=== PATIENT | male | born 1970 | race Caucasian/White ===

== ENCOUNTER 2018-05-29 09:16 | Observation (INO) | payer BC, OTHER ==
[~2018-05-29] VITALS: Ht 170.2 cm; Wt 81.7 kg
[~2018-05-29 09:16] MED LIST: HYDROCODONE PO; JANUVIA100 MG PO; KOMBIGLYZE XR1 EAC2 PO; LIVALO4 MG PO; METFORMIN HCL1000 MG PO; OMEGA 3 1,0001 EACH PO
[2018-05-29] MEDS ORDERED: PANTOPRAZOLE 40 MG 10ML VIAL IV STA (09:21)
[2018-05-29] MEDS ORDERED: SODIUM CHLORIDE 0.9% 1000ML 1,000 ML IV STA (09:21)
[2018-05-29] MEDS ORDERED: ONDANSETRON HCL INJ 2 MG/ML VIAL IV ONE (09:30)
[2018-05-29 09:48] LABS: BASOPHILS % 0.3 % (0.0-1.0); EOSINOPHILS # (AUTO) 0.1 (0.0-0.4); EOSINOPHILS % 1.4 % (0.0-6.0); HEMATOCRIT 41.9 % (38.2-49.6); HEMOGLOBIN 13.8 g/dL (14.0-18.0); LYMPHOCYTES # (AUTO) 2.4 (1.0-3.2); LYMPHOCYTES % 36.1 % (18.0-39.1); MEAN CORPUSCULAR HEMOGLOBIN 22.5 pg (28-32); MEAN CORPUSCULAR HGB CONC 32.9 g/dL (31-35); MEAN CORPUSCULAR VOLUME 68.5 fL (81-99); MONOCYTES # (AUTO) 0.4 (0.2-0.8); MONOCYTES % 5.5 % (4.4-11.3); NEUTROPHILS # (AUTO) 3.7 (2.1-6.9); NEUTROPHILS % 56.5 % (38.7-80.0); PLATELET COUNT 247 x10e3/uL (140-360); RED BLOOD COUNT 6.12 x10e6/uL (4.3-5.7); RED CELL DISTRIBUTION WIDTH 17.4 % (11.7-14.4)
[2018-05-29 10:00] LABS: ALANINE AMINOTRANSFERASE 34 IU/L (0-55); ALBUMIN/GLOBULIN RATIO 1.1 (0.8-2.0); ALKALINE PHOSPHATASE 122 IU/L (40-150); AMYLASE 87 U/L (25-125); ANION GAP 13.5 mmol/L (8-16); BLOOD UREA NITROGEN 11 mg/dL (7-26); BUN/CREATININE RATIO 13 (6-25); CALCIUM 9.4 mg/dL (8.4-10.2); CARBON DIOXIDE 22 mmol/L (22-29); CHLORIDE 106 mmol/L (98-107); CREATININE, SERUM 0.82 mg/dL (0.72-1.25); EST GLOMERULAR FILTRATION RATE > 60 ML/MIN (60-); GLUCOSE 125 mg/dL (74-118); LIPASE 52 U/L (8-78); POTASSIUM 3.5 mmol/L (3.5-5.1); SODIUM 138 mmol/L (136-145)
[2018-05-29] MEDS ORDERED: DIATRIZOATE MEGL/DIATRIZOA SOD 30 ML BTL PO ONE (10:33)
[2018-05-29 10:57] LABS: BILIRUBIN,URINE NEGATIVE (NEGATIVE); CLARITY,URINE CLEAR (CLEAR); COLOR,URINE YELLOW (YELLOW); KETONES,URINE NEGATIVE (NEGATIVE); LEUKOCYTE ESTERASE ,URINE NEGATIVE (NEGATIVE); NITRITE,URINE NEGATIVE (NEGATIVE); PROTEIN,URINE DIPSTICK NEGATIVE (NEGATIVE); URINE UROBILINOGEN 0.2 mg/dL (0.2 - 1)
[2018-05-29 11:09] LABS: EPITHELIAL CELLS,URINE RARE /LPF
[2018-05-29] MEDS ORDERED: METRONIDAZOLE 500MG/NS 100ML 100 ML IV ONE (12:00)
[2018-05-29] MEDS ORDERED: PIPER-TAZ 3.375 GM 50 ML IV ONE (12:00)
[2018-05-29] MEDS: SODIUM CHLORIDE 0.9% 1000ML 1,000 ML IV SCH ×2 (12:31→19:36)
--- NOTE | 2018-05-29 12:36 | Diagnostic Imaging Report ---
PROCEDURE: CT ABDOMEN AND PELVIS WITH CONTRAST TECHNIQUE: The abdomen and pelvis were scanned utilizing a multidetector helical scanner from the diaphragm to the lesser trochanter after the IV administration of 100 cc of Isovue 370 and the oral administration of dilute Gastrografin. Coronal and sagittal multiplanar reformations were obtained. COMPARISON: Patients [facility], CT, CT ABDOMEN AND PELVIS WITHOUT CONTRAST, 10/22/2008, 18:19. INDICATIONS: BLOOD IN STOOL FINDINGS: LOWER THORAX: Unremarkable. HEPATOBILIARY: No focal hepatic lesions. No biliary ductal dilatation. Gallbladder is unremarkable. SPLEEN: No splenomegaly. PANCREAS: No focal masses or ductal dilatation. ADRENALS: No adrenal nodules. KIDNEYS/URETERS: No hydronephrosis, stones, or solid mass lesions. PELVIC ORGANS/BLADDER: Bladder is unremarkable. No wall thickening or focal lesions. Prostate is unremarkable. PERITONEUM / RETROPERITONEUM: No free air or fluid. LYMPH NODES: No intra-abdominal, retroperitoneal, pelvic, or inguinal adenopathy. Partially calcified andi hepatis and portacaval lymph nodes (series 2, image 23 and 25). VESSELS: Celiac trunk, superior and inferior mesenteric, and bilateral renal arteries are patent. Portal, superior mesenteric, and splenic veins are patent. Mild atherosclerotic calcification of the distal abdominal aorta and proximal iliac vessels. GI TRACT: There is an approximately 8-9 cm portion of the proximal sigmoid colon which shows a moderate wall thickening (series 2, image 66). A single diverticulum is noted at this location (sagittal image 84). No surrounding perisigmoidal inflammatory changes or increased vascularity. No other diverticula are identified. No evidence of perforation or abscess formation. The rest of the bowel shows no wall thickening, dilation, or obstruction. Stomach is unremarkable. BONES AND SOFT TISSUES: No aggressive lytic lesion. Soft tissues are grossly unremarkable. IMPRESSION: 1. Moderate wall thickening in a 8-9 cm portion of the proximal sigmoid colon. Although a single diverticulum is noted at this location, no surrounding perisigmoidal inflammatory changes/fat stranding are noted to suggest acute diverticulitis or active inflammatory colitis (for example, Crohn's disease). Findings may represent muscular hypertrophy if there is history of multiple episodes of diverticulitis, or represent colonic neoplasm. Infectious colitis is less likely given the relatively focal nature of the finding. Recommend direct visualization with endoscopy for further evaluation. Natan Ruiz M.D. Dictated by: Natan Ruiz M.D. on 05/29/2018 at 12:40 Electronically approved by: Natan Ruiz M.D. on 05/29/2018 at 12:40
[2018-05-29] MEDS ORDERED: DEXTROSE 50% SYRINGE 50 ML IV PRN (13:00)
[2018-05-29 13:40] VITALS: BP 119/88
[2018-05-29 13:56] LABS: HEMATOCRIT 40.5 % (38.2-49.6); HEMOGLOBIN 13.1 g/dL (14.0-18.0)
[2018-05-29 14:00] VITALS: BP 119/88
[2018-05-29] MEDS ORDERED: SODIUM CHLORIDE 0.9% 50ML 50 ML ONE (14:13)
[2018-05-29] MEDS ORDERED: IOPAMIDOL 370 MG/ML 200 ML INFUS..BTL INJ ONE (14:16)
[2018-05-29] MEDS ORDERED: FENTANYL CITRATE/PF 100MCG/2 ML INJ ONE (14:24)
[2018-05-29] MEDS ORDERED: MIDAZOLAM HCL 2 MG/2 ML VIAL ONE (14:24)
[2018-05-29 15:21] VITALS: BP 124/80
[2018-05-29] MEDS ORDERED: PEG (High)/E-LYTE SOLN 4,000 ML BTL PO ONE (16:30)
[2018-05-29] MEDS: PIPER-TAZ 3.375 GM 50 ML IV SCH ×2 (19:22→22:24)
[2018-05-29] MEDS: METRONIDAZOLE 500MG/NS 100ML 100 ML IV SCH ×2 (19:22→23:36)
[2018-05-29 20:00] VITALS: BP 133/80
[2018-05-29 20:49] LABS: HEMATOCRIT 42.9 % (38.2-49.6); HEMOGLOBIN 13.8 g/dL (14.0-18.0)
[2018-05-30] VITALS (8 sets, daily range): BP systolic 107–133; BP diastolic 62–80
[2018-05-30 01:30] LABS: HEMATOCRIT 38.4 % (38.2-49.6); HEMOGLOBIN 12.7 g/dL (14.0-18.0)
[2018-05-30] MEDS: SODIUM CHLORIDE 0.9% 1000ML 1,000 ML IV SCH ×3 (01:56→20:18)
[2018-05-30] MEDS: METRONIDAZOLE 500MG/NS 100ML 100 ML IV SCH ×3 (05:01→18:35)
[2018-05-30] MEDS: PIPER-TAZ 3.375 GM 50 ML IV SCH ×3 (05:01→22:57)
[2018-05-30 05:25] LABS: HEMATOCRIT 42.2 % (38.2-49.6); HEMOGLOBIN 13.3 g/dL (14.0-18.0)
[2018-05-30] MEDS: PANTOPRAZOLE 40 MG 10ML VIAL IV SCH (09:44)
[2018-05-30 12:01] LABS: HEMATOCRIT 40.6 % (38.2-49.6); HEMOGLOBIN 13.3 g/dL (14.0-18.0)
[2018-05-30] MEDS ORDERED: HYOSCYAMINE SULFATE 0.5 MG/ML AMP ONE (15:01)
[2018-05-30] MEDS ORDERED: LIDOCAINE HCL 2% LOCAL INJ 5 ML SDV VIAL INJ ONE (15:01)
[2018-05-30] MEDS ORDERED: PROPOFOL IV EMULSION 10 MG/ML 50 ML VIAL ONE (15:01)
--- NOTE | 2018-05-30 17:43 | Operative Report ---
DATE OF PROCEDURE: May 30, 2018 REFERRING PHYSICIAN: Dr. Alex Carroll PROCEDURE PERFORMED: Colonoscopy and polypectomy. INDICATIONS FOR COLONOSCOPY: Rectal bleeding and abnormal computerized tomography scan. MEDICATION: Patient was done under MAC. Please see anesthesiologist's note. PROCEDURE: With the patient in the left lateral decubitus position, the flexible fiberoptic Olympus colonoscope was inserted into the rectum with ease and advanced all the way to the cecum. It was then withdrawn slowly. Mucosa overlying the cecum and ascending colon appeared to be within normal limits. One polyp was snared from the transverse colon. The descending colon appeared to be within normal limits. Diverticular disease was noted to involve the sigmoid colon. One polyp was hot biopsied from the sigmoid colon. One polyp was hot biopsied from the rectum. The scope was then retroflexed into the distal rectum and small internal hemorrhoids were noted, none of which was actively bleeding. The scope was then straightened out. The scope was subsequently withdrawn. An anal fissure was noted on the way out. Patient tolerated the procedure well. IMPRESSION 1. Transverse colon polyp, snared. 2. Sigmoid diverticulosis. 3. Sigmoid colon polyp, hot biopsied. 4. Rectal polyp, hot biopsied. 5. Internal hemorrhoids, none actively bleeding. 6. Anal fissure. PLAN: Follow up histology. Initiate GI soft diet. Hydrocortisone suppositories 25 mg b.i.d. times 10 days then p.r.n. Job#: [id number] RI cc:ALEX CARROLL MD
[2018-05-30 18:59] LABS: HEMATOCRIT 40.9 % (38.2-49.6); HEMOGLOBIN 13.3 g/dL (14.0-18.0)
[2018-05-31] VITALS: BP 115/70
[2018-05-31] MEDS: METRONIDAZOLE 500MG/NS 100ML 100 ML IV SCH ×3 (00:21→11:16)
[2018-05-31 00:28] LABS: HEMATOCRIT 38.8 % (38.2-49.6); HEMOGLOBIN 12.8 g/dL (14.0-18.0)
[2018-05-31] MEDS: SODIUM CHLORIDE 0.9% 1000ML 1,000 ML IV SCH (03:58)
[2018-05-31 04:00] VITALS: BP 117/66
[2018-05-31 05:19] LABS: HEMATOCRIT 41.6 % (38.2-49.6); HEMOGLOBIN 13.4 g/dL (14.0-18.0)
[2018-05-31] MEDS: PIPER-TAZ 3.375 GM 50 ML IV SCH ×2 (05:32→13:00)
[2018-05-31 08:00] VITALS: BP 117/73
[2018-05-31] MEDS ORDERED: HYDROCORTISONE ACETATE 25 MG/SUPP.RECT SUPP RC SCH (09:00)
[2018-05-31] MEDS: PANTOPRAZOLE 40 MG 10ML VIAL IV SCH (09:19)
[2018-05-31 12:05] VITALS: BP 134/71
[2018-05-31 12:12] LABS: HEMATOCRIT 39.7 % (38.2-49.6)
[2018-05-31 16:28] VITALS: BP 118/76
--- NOTE | 2018-05-31 16:37 | Discharge Summary ---
ADMIT DIAGNOSES 1. Lower gastrointestinal bleeding. 2. Type 2 diabetes mellitus. 3. Sigmoid colitis. DISCHARGE DIAGNOSES 1. Status post colonoscopy. 2. Endoscopically proven anal fissure, internal hemorrhoids, rectal, sigmoid colon, and transverse colon polyps. 3. Type 2 diabetes mellitus. HOSPITAL COURSE: This is a 47-year-old man who was initially admitted to [facility] with the diagnosis of rectal bleeding secondary to lower gastrointestinal bleeding. During this hospitalization, the patient underwent a CT of the abdomen and pelvis, which initially revealed findings consistent with sigmoid colitis. The patient, however, underwent colonoscopy during this hospitalization that did not reveal sigmoid colitis, but did reveal transverse and sigmoid colon polyps, as well as rectal polyps. These polyps were all biopsied. The patient was also found to have internal hemorrhoids that were not actually bleeding, but he was found to have an anal fissure. The patient's brief hospitalization was unremarkable. The patient's hemoglobin and hematocrit remained stable during this hospitalization. The patient did not require blood transfusion during this hospitalization. On the day of discharge, the patient's hemoglobin was 13 g/dL. The patient's condition on discharge was stable. DISCHARGE MEDICATIONS 1. Anusol HC suppository 1 per rectum twice a day for 2 weeks. 2. Edwards-3 fish oil 1000 mg daily. 3. Pravastatin 40 mg at bedtime. 4. Trulicity 1.5 mg subcutaneous weekly. FOLLOWUP INSTRUCTIONS: The patient was instructed to follow up with Dr. Barney Gonzalez within 2 weeks, and with his primary care physician within 2-3 weeks. JUAN C LINN MD Job#: [id number] ND
--- NOTE | 2018-05-31 16:38 | Discharge Summary ---
TAPAN RICARDO, LENGTH 0:1 JUAN C LINN MD Job#: [id number] PRINCESS
== END 2018-05-31 17:16 | disposition home or self-care (01) ==
LOC: ER 09:16 → ERHOLD 12:14 → IMCU 13:23
DX: K60.2 Anal fissure, unspecified (principal); K62.1 Rectal polyp; K64.8 Other hemorrhoids; D12.3 Benign neoplasm of transverse colon; K57.30 Diverticulosis of large intestine without perforation or abscess without bleeding; K92.1 Melena; E03.9 Hypothyroidism, unspecified; E78.5 Hyperlipidemia, unspecified; E11.9 Type 2 diabetes mellitus without complications; Z79.899 Other long term (current) drug therapy; Z87.891 Personal history of nicotine dependence
CPT/HCPCS: 36415 ×3; 45384; 45385; 74177; 80053; 81001; 82150; 82270; 82948 ×3; 83690; 85014 ×3; 85018 ×3; 85025; 88305; 99284; G0378 ×3; J1980; J2001; J2250; J2405; J2543 ×3; J7030 ×3; Q9967

== ENCOUNTER → 2018-07-05 | Day surgery (SDC) | payer OTHER ==
[~2018-07-05] MED LIST changes: +DEXTROSE 5% 250ML 250 ML IV ONE; +FENTANYL CITRATE/PF 100MCG/2 ML INJ ONE; +LIDOCAINE HCL 2% LOCAL INJ 5 ML SDV VIAL INJ ONE; +MIDAZOLAM HCL 2 MG/2 ML VIAL ONE; +PROPOFOL IV EMULSION 10 MG/ML 50 ML VIAL ONE; +TRULICITY
--- NOTE | 2018-07-05 21:34 | Operative Report ---
DATE OF PROCEDURE: July 05, 2018 REFERRING PHYSICIAN: Dr. Marco A Magallon PROCEDURE PERFORMED: Esophagogastroduodenoscopy with biopsies. INDICATIONS FOR EGD: Upper abdominal pain, heartburn and indigestion. MEDICATION: Patient was done under MAC. Please see anesthesiologist's note. PROCEDURE: With the patient in the left lateral decubitus position, the flexible fiberoptic Olympus gastroscope was introduced into the esophagus under direct visualization without any difficulty. There was some patchy erythema noted in the distal esophagus. The scope was then advanced with ease into the stomach, and the mucosa overlying the antrum and the body revealed some patchy erythema and moderate edema, and biopsies were obtained and sent to stain for H. pylori. The pylorus was of normal contour and shape. It was intubated with ease. The scope was advanced all the way to the 2nd portion of the duodenum. The scope was then withdrawn slowly. Mucosa overlying the proximal 2nd portion and the duodenal bulb appeared to be within normal limits. The scope was then withdrawn back into the stomach and retroflexed. The mucosa overlying the fundus and the cardia appeared to be within normal limits. The scope was then straightened out. The stomach was decompressed. The scope was subsequently withdrawn. Patient tolerated the procedure well. IMPRESSION 1. Distal esophagitis. 2. Gastritis, biopsied. Biopsy sent to stain for Helicobacter pylori. PLAN: Follow up histology. Initiate Protonix 40 mg 1 p.o. q.a.m. a.c. Job#: [id number] RI cc:MARCO A MAGALLON M.D.
== END | disposition home or self-care (01) ==
LOC: OR 12:36
PROVIDERS: ATTEND Internal Medicine Gastroenterology
DX: K29.70 Gastritis, unspecified, without bleeding (principal); K31.89 Other diseases of stomach and duodenum; K20.9 Esophagitis, unspecified; K21.9 Gastro-esophageal reflux disease without esophagitis; E11.9 Type 2 diabetes mellitus without complications; N20.0 Calculus of kidney; Z01.810 Encounter for preprocedural cardiovascular examination; Z87.891 Personal history of nicotine dependence
CPT/HCPCS: 36415; 43239; 82948; 93005; J2001; J2250; 45380

== ENCOUNTER 2018-10-17 10:28 | Inpatient (IN) | payer BC, OTHER ==
[~2018-10-17] VITALS: Ht 170.2 cm; Wt 75.0 kg
[~2018-10-17 10:28] MED LIST changes: -DEXTROSE 5% 250ML 250 ML IV ONE; -FENTANYL CITRATE/PF 100MCG/2 ML INJ ONE; -LIDOCAINE HCL 2% LOCAL INJ 5 ML SDV VIAL INJ ONE; -MIDAZOLAM HCL 2 MG/2 ML VIAL ONE; -PROPOFOL IV EMULSION 10 MG/ML 50 ML VIAL ONE
[2018-10-17] MEDS ORDERED: DIPHENHYDRAMINE HCL INJ 50 MG/ML VIAL IV PRN (14:45)
[2018-10-17] MEDS ORDERED: LACTULOSE SYRUP 20 GM/30 ML UDC PO PRN (14:45)
[2018-10-17] MEDS ORDERED: ACETAMINOPHEN 325 MG TAB PO PRN (14:45)
[2018-10-17] MEDS ORDERED: HYDROMORPHONE 1MG/1ML INJ IV PRN (14:45)
[2018-10-17] MEDS ORDERED: CLONIDINE HCL 0.1 MG TAB PO PRN (14:45)
[2018-10-17] MEDS ORDERED: ENALAPRILAT IV INJ 1.25 MG/ML VIAL IV PRN (14:45)
[2018-10-17] MEDS ORDERED: PROMETHAZINE 25MG/ NS 50ML (IV) IV PRN (14:45)
[2018-10-17] MEDS ORDERED: MORPHINE SULFATE 2 MG/ML SYR IV PRN (14:45)
[2018-10-17] MEDS ORDERED: ZOLPIDEM TARTRATE 5 MG TAB PO PRN ×2 (14:45)
--- NOTE | 2018-10-17 15:03 | Diagnostic Imaging Report ---
Abdomen, one view dated 10/17/2018. History: Constipation. Comparison: Abdominal and pelvic CT dated 05/29/2018 Findings: Moderate amount of stool present within the right colon. The intestinal gas pattern is nonobstructive. There no masses. Right upper quadrant calcifications only partially visualized but seen on a prior CT and confirmed to be within the andi hepatis lymph nodes. The osseous structures are intact. IMPRESSION: Moderate amount of fecal material present within the right colon. Signed by: Dr. Quirino Acuna DO on 10/17/2018 2:59 PM
[2018-10-17] MEDS ORDERED: DIATRIZOATE MEGL/DIATRIZOA SOD 30 ML BTL PO ONE (15:05)
[2018-10-17] MEDS: MORPHINE SULFATE INJ 4 MG/ML INJ IV PRN ×2 (15:18→20:29)
[2018-10-17] MEDS: ONDANSETRON HCL INJ 2 MG/ML VIAL IV PRN ×2 (15:19→23:52)
[2018-10-17 15:24] LABS: BASOPHILS % 0.5 % (0.0-1.0); EOSINOPHILS # (AUTO) 0.1 (0.0-0.4); HEMOGLOBIN 14.8 g/dL (14.0-18.0); LYMPHOCYTES # (AUTO) 3.1 (1.0-3.2); LYMPHOCYTES % 46.4 % (18.0-39.1); MEAN CORPUSCULAR HGB CONC 32.9 g/dL (31-35); MEAN CORPUSCULAR VOLUME 69.9 fL (81-99); MONOCYTES # (AUTO) 0.4 (0.2-0.8); MONOCYTES % 6.2 % (4.4-11.3); NEUTROPHILS % 44.7 % (38.7-80.0); PLATELET COUNT 227 x10e3/uL (140-360); RED BLOOD COUNT 6.44 x10e6/uL (4.3-5.7); RED CELL DISTRIBUTION WIDTH 17.6 % (11.7-14.4)
[2018-10-17 15:40] LABS: ALANINE AMINOTRANSFERASE 29 IU/L (0-55); ALBUMIN 4.2 g/dL (3.5-5.0); ALBUMIN/GLOBULIN RATIO 1.1 (0.8-2.0); ALKALINE PHOSPHATASE 117 IU/L (40-150); ANION GAP 14.6 mmol/L (8-16); BLOOD UREA NITROGEN 9 mg/dL (7-26); BUN/CREATININE RATIO 11 (6-25); CALCIUM 9.9 mg/dL (8.4-10.2); CARBON DIOXIDE 24 mmol/L (22-29); CHLORIDE 103 mmol/L (98-107); CREATININE, SERUM 0.85 mg/dL (0.72-1.25); EST GLOMERULAR FILTRATION RATE > 60 ML/MIN (60-); GLUCOSE 101 mg/dL (74-118); POTASSIUM 3.6 mmol/L (3.5-5.1); SODIUM 138 mmol/L (136-145)
[2018-10-17] MEDS ORDERED: FAMOTIDINE 20 MG/2 ML VIAL IV SCH (17:00)
--- NOTE | 2018-10-17 17:28 | Diagnostic Imaging Report ---
EXAMINATION: CT of the abdomen and pelvis without contrast. TECHNIQUE: Spiral CT images of the abdomen and pelvis were performed from the lung bases to the lesser trochanters. No intravenous contrast was given per physician's request. Oral Gastrografin was given. Coronal and sagittal reformatted images were obtained. COMPARISON: CT abdomen and pelvis with contrast 05/29/2018 CLINICAL HISTORY:Abdominal pain, look for small bowel obstruction) despite negative KUB DISCUSSION: ABSENCE OF INTRAVENOUS CONTRAST DECREASES SENSITIVITY FOR DETECTION OF FOCAL LESIONS AND VASCULAR PATHOLOGY. ABDOMEN/PELVIS: LOWER THORAX: Lung bases are clear. Mild atherosclerotic calcification of the coronary arteries. HEPATOBILIARY: No focal hepatic lesions. No intra or extrahepatic biliary ductal dilation. GALLBLADDER: No radio-opaque stones or sludge. No wall thickening. SPLEEN: No splenomegaly. PANCREAS: No focal masses or ductal dilatation. ADRENALS: No adrenal nodules. KIDNEYS/URETERS: 1-2 mm nonobstructing calculus in the right interpolar region (series 2, image 32). No other renal or ureteral calculi, hydronephrosis or obstruction. No renal contour abnormalities or perinephric stranding. PELVIC ORGANS/BLADDER: Bladder is unremarkable. Prostate is unremarkable. PERITONEUM/RETROPERITONEUM: No free air or fluid. LYMPH NODES: No intra-abdominal,retroperitoneal, pelvic or inguinal lymphadenopathy. Peripherally calcified structure between the uday and IVC (series 2, image 25) likely represents a calcified portacaval node. There are subcentimeter uday hepatis nodes that have calcifications (for example series 2, image 22-25). VESSELS: Mild atherosclerotic calcification of the distal abdominal aorta and proximal iliac vessels. GI TRACT: No bowel dilation or evidence of obstruction. No pericolonic inflammatory changes. Mild distal descending diverticulosis, without diverticulitis. BONES AND SOFT TISSUES: No aggressive lytic lesions. Soft tissues are grossly unremarkable. IMPRESSION: 1. Exam limited by lack of intravenous contrast. 2. No bowel dilation or evidence of obstruction. 3. 1-2 mm nonobstructing calculus in the right interpolar region. No ureteral calculi, hydronephrosis or obstruction. 4. Peripherally calcified structure between the uday and IVC likely represents a portacaval node. Uday hepatis nodes with internal calcifications, likely the sequela of prior inflammation or infection. Correlate for prior pancreatitis. Signed by: Dr. Natan Ruiz M.D. on 10/17/2018 5:25 PM
[2018-10-17] MEDS: DOCUSATE SODIUM 100 MG CAP PO SCH (17:43)
[2018-10-17 18:51] VITALS: BP 114/75
[2018-10-17 19:18] VITALS: BP 116/79
[2018-10-17 19:24] VITALS: BP 116/79
[2018-10-17] MEDS ORDERED: BUPROPION XL150 MG PO (19:35)
[2018-10-17] MEDS ORDERED: PHENTERMINE H37.5 M1 PO (19:35)
[2018-10-17] MEDS ORDERED: PANTOPRAZOLE SO40 MG PO (19:35)
[2018-10-17 20:30] VITALS: BP 115/74
[2018-10-17] MEDS: HYDROMORPHONE 2MG/ML 2 MG/ML ML IV PRN (23:52)
[2018-10-17] MEDS: PANTOPRAZOLE 40 MG 10ML VIAL IV SCH (23:52)
[2018-10-18] VITALS (7 sets, daily range): BP systolic 106–131; BP diastolic 58–90
[2018-10-18] MEDS: HYDROMORPHONE 2MG/ML 2 MG/ML ML IV PRN (08:14)
[2018-10-18] MEDS ORDERED: BUPIVACAINE 0.25% 30ML SDV INJ ONE (08:30)
[2018-10-18] MEDS ORDERED: LIDOCAINE HCL 2% 30 ML TUBE ONE (08:31)
[2018-10-18] MEDS ORDERED: GELATIN SPONGE 12-7MM ONE ×3 (08:32→10:09)
[2018-10-18] MEDS: DOCUSATE SODIUM 100 MG CAP PO SCH ×2 (09:00→17:00)
[2018-10-18] MEDS: BUPROPION HCL 150 MG TABCR PO SCH (09:00)
[2018-10-18] MEDS: PHENTERMINE HCL 37.5 MG PO SCH (09:00)
[2018-10-18] MEDS ORDERED: DEXTROSE 5% 250ML 250 ML IV ONE (09:11)
[2018-10-18] MEDS ORDERED: BUPIVACAINE LIPOSOME/PF 266 MG/20 ML IJ ONE (09:41)
[2018-10-18] MEDS ORDERED: HYDROGEN PEROXIDE 120 ML BTL ONE (09:41)
--- NOTE | 2018-10-18 10:02 | History and Physical ---
DATE OF SERVICE: October 18, 2018 CHIEF COMPLAINT: Rectal pain, constipation. HPI: This is a 48-year-old male with known history of chronic constipation of note for the last 2 months as well as rectal pain, who comes into the ED with complaints of severe rectal pain ongoing, worsening over the last several days. Patient also reports having some hemorrhoids with some blood in the stool as well. He has been seeing his GI specialist as well as an outpatient. Of note, she has noticed that he has been severely constipated, trying to have a bowel movement, but he has severe rectal pain, came into the ED for further evaluation. Patient is seen and evaluated at bedside on the medical floor, currently doing well with no other issues. He is scheduled to have surgery later today. REVIEW OF SYSTEMS: Pertinent positive: Constipation and rectal pain. Pertinent negative: Denies any chest pain, palpitation, nausea, vomiting, diarrhea, dysuria, hematuria, frequency, urgency, lightheadedness, dizziness, abdominal pain, headache, shortness of breath, cough, congestion, fever, or any other complaints. The rest of the 14-point review of systems have been reviewed with the patient and are negative. ALLERGIES: NO KNOWN DRUG ALLERGIES. HOME MEDICATIONS 1. Bupropion XL 150 mg daily q.24 hours. 2. Protonix 40 mg daily. PAST MEDICAL HISTORY: He has chronic constipation. He has a history of depression and acid reflux. PAST SURGICAL HISTORY: Reports none. FAMILY HISTORY: Hypertension and diabetes. SOCIAL HISTORY: No drugs. No alcohol. Does not smoke. Good social support. LAB FINDINGS: Show white count is 6.6, hemoglobin 14.0, hematocrit 45, and platelets 227. Chemistry: Sodium 138, potassium 3.6, chloride 103, bicarb 22, anion gap of 14, BUN 9, creatinine 0.8, glucose 101, calcium 9.5, total bilirubin is 4, AST 27, ALT 29, alk phos 172, total protein 8.2, and albumin 4.2. MICROBIOLOGY: None. IMAGING STUDIES: Abdominal x-ray shows moderate amount of fecal material present in the right colon. CT abdomen and pelvis shows a 1 to 2 mm nonobstructing calculus in the right interpole region. There is no evidence of hydronephrosis or obstruction. No bowel dilatation or evidence of obstruction. PHYSICAL EXAMINATION VITAL SIGNS: Temperature 96.6, pulse 76, respiratory rate is 18, blood pressure 122/74, and pulse ox 99% on room air. GENERAL: Not in acute distress, alert and oriented x3, cooperative on examination. HEENT: Head normocephalic, atraumatic. Eyes: Pupils equal, round, and reactive to light bilaterally. Extraocular movements are intact bilaterally. Throat; no evidence of any erythema or exudates in the posterior pharynx. Has poor dentition. NECK: Supple with good range of motion. PULMONARY: Clear to auscultation bilaterally. No wheezing, no rales, no rhonchi. No crackles appreciated. CARDIOVASCULAR: Positive S1 and S2. No murmurs, rubs or gallops appreciated. ABDOMEN: Soft, nondistended, nontender to palpation. Bowel sounds are present. MUSCULOSKELETAL: Strength 5/5 throughout. No evidence of any musculoskeletal deficit on exam. No weakness appreciated. NEUROLOGIC: Cranial nerves II through XII grossly intact. No evidence of any neurological deficit on exam. SKIN: Intact. Warm to touch. Good capillary refill. PSYCHIATRIC: Normal affect and mood. EXTREMITIES: No edema. Good range of motion throughout. ASSESSMENT 1. Acute anal fissure, tear. 2. Chronic constipation. 3. Hemorrhoids. 4. History of depression. PLAN: At this time, general surgery has been consulted and patient is scheduled to go to the OR later today. GI was also consulted as well. He is n.p.o. Pain control and IV fluids. We are going to resume all his home medications with no changes. Resume a diet after surgery. Continue with pain control as well. Lovenox for DVT prophylaxis. Patient will likely be here for several more days. Job#: [id number] HENRIQUE
[2018-10-18] MEDS ORDERED: ONDANSETRON HCL INJ 2 MG/ML VIAL ONE (10:35)
[2018-10-18] MEDS: PANTOPRAZOLE 40 MG 10ML VIAL IV SCH ×2 (11:05→22:00)
--- NOTE | 2018-10-18 11:52 | Operative Report ---
DATE OF PROCEDURE: October 18, 2018 PREOPERATIVE DIAGNOSIS: Chronic anal fissure. POSTOPERATIVE DIAGNOSIS: Chronic anal fissure. PROCEDURES PERFORMED: Rectal examination under anesthesia, anoscopy, partial lateral internal sphincterotomy. ANESTHESIA: General. ESTIMATED BLOOD LOSS: Minimal. DRAINS: None. COMPLICATIONS: None. INDICATIONS: A 48-year-old male admitted to Dr. Brown's service through the emergency room with severe anal pain. The patient had had a colonoscopy several weeks ago by his GI doctor, Dr. Barney Gonzalez. He had also been treated by his primary care physician as an outpatient for presumed anal fissure. He did not respond to the treatment, the pain persisted, reason for which he was admitted and reason for the operation. INTRAOPERATIVE FINDINGS: The patient had a chronic anal fissure with white glistening base located with the patient in lithotomy position at about 5 o'clock. A partial lateral internal sphincterotomy was made on the 7 o'clock position. There were internal hemorrhoids in the anal canal. DESCRIPTION OF PROCEDURE: With the patient lying on the operative table in the supine position after administration of general anesthesia, he was prepped and draped for rectal examination. He was placed in the lithotomy position. The anus was dilated to 2 fingerbreadths and then, he was prepped and draped for sphincterotomy. The anoscope was introduced and the anal canal was packed with Betadine gauze and then, a partial lateral internal sphincterotomy was performed at the 7 o'clock position. The internal muscle fibers were partially transected using electrocautery. Hemostasis was achieved completely at the end of the case. The area was packed with Gelfoam and Surgicel gauze. The patient preoperatively had an anal field block with Exparel diluted with 20 mL of sterile saline. The patient tolerated the procedure well, taken to the recovery room in stable condition. Job#: [id number] SON
[2018-10-18] MEDS: CEFOXITIN 1GM/ NS 50ML 50 ML IV SCH ×3 (12:14→23:25)
[2018-10-18] MEDS: MORPHINE SULFATE INJ 4 MG/ML INJ IV PRN (16:12)
[2018-10-18] MEDS ORDERED: PROPOFOL IV EMULSION 10 MG/ML 20 ML VIAL ONE (17:50)
[2018-10-18] MEDS: HYDROCODONE/APAP 7.5MG-325MG 1 EA TAB PO PRN ×2 (18:00→23:25)
[2018-10-18] MEDS ORDERED: FENTANYL CITRATE/PF 100MCG/2 ML INJ ONE (18:09)
[2018-10-18] MEDS ORDERED: KETAMINE HCL INJ 50 MG/ML 10 ML VIAL ONE (18:09)
[2018-10-18] MEDS ORDERED: MIDAZOLAM HCL 2 MG/2 ML VIAL ONE (18:09)
[2018-10-18] MEDS: ONDANSETRON HCL INJ 2 MG/ML VIAL IV PRN (18:30)
[2018-10-18] MEDS: SODIUM CHLORIDE 0.9% 1000ML 1,000 ML IV SCH (19:00)
[2018-10-19] VITALS: BP 112/69
[2018-10-19] MEDS: HYDROCODONE/APAP 7.5MG-325MG 1 EA TAB PO PRN ×2 (03:25→07:10)
[2018-10-19 04:00] VITALS: BP 112/76
[2018-10-19] MEDS: SODIUM CHLORIDE 0.9% 1000ML 1,000 ML IV SCH (05:00)
[2018-10-19] MEDS: CEFOXITIN 1GM/ NS 50ML 50 ML IV SCH ×2 (05:12→12:00)
[2018-10-19 06:49] LABS: BASOPHILS % 0.1 % (0.0-1.0); EOSINOPHILS # (AUTO) 0.1 (0.0-0.4); EOSINOPHILS % 0.9 % (0.0-6.0); HEMATOCRIT 43.7 % (38.2-49.6); HEMOGLOBIN 13.8 g/dL (14.0-18.0); LYMPHOCYTES # (AUTO) 2.8 (1.0-3.2); LYMPHOCYTES % 36.9 % (18.0-39.1); MEAN CORPUSCULAR HEMOGLOBIN 22.5 pg (28-32); MEAN CORPUSCULAR HGB CONC 31.6 g/dL (31-35); MEAN CORPUSCULAR VOLUME 71.4 fL (81-99); MONOCYTES # (AUTO) 0.7 (0.2-0.8); MONOCYTES % 9.1 % (4.4-11.3); NEUTROPHILS # (AUTO) 3.9 (2.1-6.9); NEUTROPHILS % 52.1 % (38.7-80.0); PLATELET COUNT 216 x10e3/uL (140-360); RED BLOOD COUNT 6.12 x10e6/uL (4.3-5.7); RED CELL DISTRIBUTION WIDTH 16.6 % (11.7-14.4)
[2018-10-19 07:09] LABS: ANION GAP 12.1 mmol/L (8-16); BLOOD UREA NITROGEN 7 mg/dL (7-26); BUN/CREATININE RATIO 7 (6-25); CALCIUM 9.7 mg/dL (8.4-10.2); CARBON DIOXIDE 27 mmol/L (22-29); CHLORIDE 103 mmol/L (98-107); CREATININE, SERUM 0.96 mg/dL (0.72-1.25); EST GLOMERULAR FILTRATION RATE > 60 ML/MIN (60-); GLUCOSE 72 mg/dL (74-118); POTASSIUM 4.1 mmol/L (3.5-5.1); SODIUM 138 mmol/L (136-145)
[2018-10-19] MEDS ORDERED: PANTOPRAZOLE SOD 40 MG TABEC PO SCH (07:30)
[2018-10-19 08:42] VITALS: BP 116/57
[2018-10-19] MEDS: PHENTERMINE HCL 37.5 MG PO SCH (09:00)
[2018-10-19] MEDS: DOCUSATE SODIUM 100 MG CAP PO SCH (09:15)
[2018-10-19] MEDS: BUPROPION HCL 150 MG TABCR PO SCH (09:15)
[2018-10-19 12:15] VITALS: BP 116/57
[2018-10-19 13:44] VITALS: BP 107/71
[2018-10-19] MEDS ORDERED: TYLENOL WITH C1 EACH PO (13:56)
[2018-10-19] MEDS ORDERED: LEVAQUIN500 MG PO (13:57)
--- NOTE | 2018-10-20 08:56 | Discharge Summary ---
FINAL DISCHARGE DIAGNOSES 1. Chronic anal fissure, status post partial lateral internal sphincterotomy performed by general surgery. 2. Chronic constipation. 3. History of hemorrhoids. 4. History of depression. CONSULTANTS: General Surgery. VITAL SIGNS: Temperature is 97.6, pulse 164/57, respiratory rate 18, blood pressure 164/57, pulse ox 99% on room air. LAB FINDINGS: White count 7.4, hemoglobin is 13.9, hematocrit is 44, and platelets of 216. Chemistry: Sodium 138, potassium 4.1, chloride 134, bicarb 27, anion gap of 12, BUN is 7, creatinine is 0.96, glucose is 72. MICROBIOLOGY: None. IMAGING STUDIES: CT of abdomen and pelvis showed no bowel dilatation or no evidence of obstruction. There is 1 to 2 mm nonobstructing calculus in the right interpolar region. No ureteral calculi, hydronephrosis or obstruction seen. Abdominal x-ray shows moderate amount fecal material present in the right lower quadrant. HOSPITAL COURSE: This is a 48-year-old male with chronic constipation. He also has a chronic anal fissure, who came in with complaints of rectal pain. Imaging studies were consistent with chronic fecal material. General surgery and GI was consulted. Patient underwent on October 18, 2018, a partial lateral internal sphincterotomy performed by general surgery, Dr. Holbrook. Patient did well postoperatively with no complaints. GI was consulted and was initiated. Patient's home medications were all resumed while here in the hospital. Patient did well prior to discharge. He was discharge on antibiotics as well as pain control. On the day of discharge, vital signs stable, labs reviewed and stable. Patient seen and evaluated and examined thoroughly on the day of discharge with no other complaints. Patient verbalized understanding and agreed with the plan of care, to follow up accordingly as an outpatient with the primary care physician in 1 week and General Surgery and GI in about 2 weeks' time. MEDICATIONS: See med reconciliation form. DISPOSITION: To home. CONDITION: Stable. DIET: Heart healthy. In the event of any worsening symptoms, the patient advised to come back to the ED for further evaluation. Discharge summary took greater than 35 minutes. JAN LYONS MD Job#: [id number] VAS
== END 2018-10-19 14:10 | disposition home or self-care (01) | DRG 349 ==
LOC: ER 10:28 → ERHOLD 15:13 → IMCU 18:36 → OBSVTOIN 10-18 10:21 → MED/SURG 10-18 17:42
PROVIDERS: ADMIT Internal Medicine; ATTEND Internal Medicine
PROC: 0DJD8ZZ Inspection of Lower Intestinal Tract, Via Natural or Artificial Opening Endoscopic (ICD-10-PCS; 2018-10-18)
PROC: 0D8R0ZZ Division of Anal Sphincter, Open Approach (ICD-10-PCS; principal; 2018-10-18 10:00)
DX: K60.2 Anal fissure, unspecified (principal); K62.81 Anal sphincter tear (healed) (nontraumatic) (old); K59.09 Other constipation; K64.8 Other hemorrhoids; K21.9 Gastro-esophageal reflux disease without esophagitis; Z86.010 Personal history of colon polyps; Z28.21 Immunization not carried out because of patient refusal
CPT/HCPCS: 36415; 74018; 74176; 80048; 80053; 82948; 85025; 99284; G0378; J2250; J2270; J2405; J2550; J7030; J7070

== ENCOUNTER → 2018-10-22 | Outpatient (CLI) | payer OTHER ==
[~2018-10-22] MED LIST changes: +BUPROPION XL150 MG PO; +IOPAMIDOL 370 MG/ML 200 ML INFUS..BTL INJ ONE; +LEVAQUIN500 MG PO; +PANTOPRAZOLE SO40 MG PO; +PHENTERMINE H37.5 M1 PO; +SODIUM CHLORIDE 0.9% 50ML 50 ML ONE; +TYLENOL WITH C1 EACH PO
--- NOTE | 2018-10-22 15:04 | Diagnostic Imaging Report ---
EXAM: CT Pelvis WITH contrast INDICATION: Status post rectal sphincterotomy; pain; looking for abscess COMPARISON: 10/17/2018 TECHNIQUE: Pelvis were scanned utilizing a multidetector helical scanner from the umbilicus to the ischial tuberosities after administration of IV contrast. Coronal and sagittal reformations were obtained. Routine protocol was performed. Scan was performed during arterial phase. Low-dose sparing parameters were utilized. IV CONTRAST: 100 mL of Isovue-370 ORAL CONTRAST: None RADIATION DOSE: Total DLP: 294.43 mGy*cm Estimated effective dose: DLP x 0.015 mSv COMPLICATIONS: None FINDINGS: GI TRACT: No abnormal distention, wall thickening, or evidence of bowel obstruction. No perirectal abscess. Minimal anal subcutaneous air related to a sphincterotomy. PELVIC ORGANS/BLADDER: Unremarkable. LYMPH NODES: No lymphadenopathy. VESSELS: Minimal vascular calcification. PERITONEUM / RETROPERITONEUM: Slightly prominent inguinal and femoral lymph nodes. BONES: Unremarkable. SOFT TISSUES: Unremarkable. IMPRESSION: No evidence of a perirectal abscess. Signed by: Dr. Quirino Acuna DO on 10/22/2018 3:01 PM
== END ==
LOC: CT 13:00
PROVIDERS: ATTEND Surgery
DX: K62.89 Other specified diseases of anus and rectum (principal)
CPT/HCPCS: 72193; Q9967

== ENCOUNTER → 2022-02-09 | Day surgery (SDC) | payer BC ==
[~2022-02-09] MED LIST changes: +ATORVASTATIN CA20 MG PO; +DECARA K PO; +FENOFIBRATE145 MG PO; +FENTANYL CITRATE/PF 100MCG/2 ML INJ ONE; +GLUCAGON FOR INJ 1 MG VIAL ONE; +GLYCOPYRROLATE INJ 0.2 MG/ML VIAL ONE; -IOPAMIDOL 370 MG/ML 200 ML INFUS..BTL INJ ONE; +LIDOCAINE HCL 2% LOCAL INJ 5 ML SDV VIAL INJ ONE; +METFORMIN HCL500 MG PO; +METOCLOPRAMIDE HCL 10 MG/2ML VIAL ONE; +MIDAZOLAM HCL 2 MG/2 ML VIAL ONE; +PROPOFOL IV EMULSION 10 MG/ML 20 ML VIAL ONE; +VASCEPA1 GM PO
[2022-02-09 15:50] VITALS: BP 126/84
== END | disposition home or self-care (01) ==
LOC: OR 10:44
PROVIDERS: ATTEND Internal Medicine Gastroenterology
DX: K29.50 Unspecified chronic gastritis without bleeding (principal); K63.5 Polyp of colon; K20.90 Esophagitis, unspecified without bleeding; K57.30 Diverticulosis of large intestine without perforation or abscess without bleeding; K21.9 Gastro-esophageal reflux disease without esophagitis; K64.8 Other hemorrhoids; D72.820 Lymphocytosis (symptomatic); Z71.3 Dietary counseling and surveillance; E11.9 Type 2 diabetes mellitus without complications; I45.10 Unspecified right bundle-branch block; E78.5 Hyperlipidemia, unspecified; Z01.810 Encounter for preprocedural cardiovascular examination; Z01.812 Encounter for preprocedural laboratory examination; Z20.822 Contact with and (suspected) exposure to COVID-19; Z79.84 Long term (current) use of oral hypoglycemic drugs; Z79.899 Other long term (current) drug therapy; Z68.26 Body mass index [BMI] 26.0-26.9, adult
CPT/HCPCS: 36415; 43239; 45380; 45385; 82948; 93005; C9113; J1610; J2001; J2250; J2704; J2765; J3010; U0002; 45378

== ENCOUNTER → 2025-04-26 | Day surgery (SDC) | payer BC, OTHER ==
[~2025-04-26] MED LIST changes: +CELEBREX100 MG PO; -GLUCAGON FOR INJ 1 MG VIAL ONE; -GLYCOPYRROLATE INJ 0.2 MG/ML VIAL ONE; -METOCLOPRAMIDE HCL 10 MG/2ML VIAL ONE; -MIDAZOLAM HCL 2 MG/2 ML VIAL ONE; +OZEMPIC0.25 MG/02 INJ; +PROPOFOL IV EMULSION 50 ML IV ONE; -SODIUM CHLORIDE 0.9% 50ML 50 ML ONE
[2025-04-26] MEDS: LACTATED RINGER'S 1,000 ML ONE (11:41)
[2025-04-26 15:33] VITALS: TEMP 97.2
[2025-04-26 16:00] VITALS: BP 112/82; PULSE 91; RESP 15; O2SAT 100
[2025-04-29 17:11] LABS: ENDOMYSIAL ANTIBODIES, IGA Negative (Negative)
[2025-04-29 17:53] LABS: IMMUNOGLOBULIN A 230 mg/dL (90-386); TISSUE TRANSGLUTAMINASE IGA AB <2 U/mL (0-3)
== END | disposition home or self-care (01) ==
LOC: OR 11:22
PROVIDERS: ATTEND Internal Medicine Gastroenterology
DX: Z12.11 Encounter for screening for malignant neoplasm of colon (principal); R14.0 Abdominal distension (gaseous); R11.0 Nausea; R12 Heartburn; E11.9 Type 2 diabetes mellitus without complications; E78.00 Pure hypercholesterolemia, unspecified; I10 Essential (primary) hypertension; D12.3 Benign neoplasm of transverse colon; K63.5 Polyp of colon; K20.90 Esophagitis, unspecified without bleeding; K29.70 Gastritis, unspecified, without bleeding; Z86.0100 Personal history of colon polyps, unspecified; Z68.29 Body mass index [BMI] 29.0-29.9, adult
CPT/HCPCS: 36415; 43239; 45385; 82784; 82948; 83516; 86256; 93005; J2003; J2470; J2704 ×2; J3010; J7121; 45378; 45380